=== PATIENT | male | born 1995 | race Caucasian/White ===

== ENCOUNTER 2017-04-17 01:22 | Emergency (ER) | payer MEDICAID ==
[~2017-04-17] VITALS: Ht 180.3 cm; Wt 100.0 kg
[2017-04-17 01:23] VITALS: BP 142/80; PULSE 84; RESP 16; TEMP 98.2; O2SAT 98
[2017-04-17] MEDS ORDERED: NAPROXEN 500 MG TAB PO ONE (02:30)
[2017-04-17] MEDS ORDERED: CYCLOBENZAPRINE HCL 10 MG TAB PO ONE (02:30)
[2017-04-17] MEDS ORDERED: CYCL10TA PO (02:31)
[2017-04-17] MEDS ORDERED: DICL75TA PO (02:31)
--- NOTE | 2017-04-17 02:35 | PD ---
HPI Chief Complaint: Back/ Neck Pain or Injury Time Seen by Provider: 02:28 Travel History International Travel<30 days: No Contact w/Intl Traveler<30days: No Traveled to known affect area: No History of Present Illness HPI 21-year-old white male presents to emergency department with complains of back pain after slip and fall earlier this evening. He states the pain is on his left lower back. Worse with bending and movement. He denies any acute bowel or bladder changes. No injury to his head, neck or upper back. Pain is moderate. Worse with bending and movement. Some relief from running still. PFSH Past Medical History Medical History: Denies Significant Hx Tetanus Vaccination: < 5 Years Influenza Vaccination: No Past Surgical History Surgical History: No Previous Surgery Social History Alcohol Use: Yes Tobacco Use: Yes Substance Use: No Allergies-Medications (Allergen,Severity, Reaction): Coded Allergies: No Known Allergies (Unverified , 04/17/17) Reported Meds & Prescriptions Reported Meds & Active Scripts Active Flexeril (Cyclobenzaprine HCl) 10 Mg Tab 10 Mg PO TID Diclofenac Sodium DR (Diclofenac Sodium) 75 Mg Tabdr 75 Mg PO BID Review of Systems Except as stated in HPI: all other systems reviewed are Neg Physical Exam Narrative GENERAL: Well-developed, well-nourished in no apparent distress. Nontoxic appearing. HEAD: Normocephalic, atraumatic. EYES: Pupils equal round and reactive. Extraocular motions intact. No scleral icterus. No injection or drainage. ENT: Nose clear. Throat without erythema, tonsillar hypertrophy or exudate. Uvula midline. Airway patent. NECK: Trachea midline. Supple, nontender, moves head freely. No central bony tenderness or spasm. CARDIOVASCULAR: Regular rate and rhythm without murmurs, gallops, or rubs. RESPIRATORY: Clear to auscultation. Breath sounds equal bilaterally. No wheezes , rales, or rhonchi. GASTROINTESTINAL: Abdomen soft, non-tender, nondistended. No hepato-splenomegaly , or palpable masses. No guarding. EXTREMITIES: No clubbing, cyanosis, or edema. No joint tenderness. BACK: No central bony tenderness to palpation of dorsal lumbar spine. Patient has tenderness and mild spasm to the left paralumbar spine. No saddle anesthesia. Without deformity. No flank tenderness. NEUROLOGICAL: Awake, alert and oriented x 3 .Cranial nerves grossly intact. Motor and sensory grossly within normal limits. Normal speech. Data Data Last Documented VS Vital Signs Date Time Temp Pulse Resp B/P (MAP) Pulse Ox O2 Delivery O2 Flow Rate FiO2 04/17/17 01:23 98.2 84 16 142/80 (100) 98 Room Air Orders Orders Naproxen (Naprosyn) (04/17/17 02:30) Cyclobenzaprine (Flexeril) (04/17/17 02:30) Ed Discharge Order (04/17/17 02:32) MDM Medical Decision Making Medical Screen Exam Complete: Yes Emergency Medical Condition: Yes Medical Record Reviewed: Yes Differential Diagnosis MDM: High Differential diagnoses: Fracture, sprain, strain, dislocation, contusion, neurovascular injury Narrative Course Patient's given Naprosyn 500 and Flexeril 10 mg by mouth. This is back contusion Diagnosis Primary Impression: Back contusion Qualified Codes: S20.222A - Contusion of left back wall of thorax, initial encounter Patient Instructions: General Instructions Additional Instructions: Rest. Ice for the next 3 days followed by heat . Flexeril and Voltaren. Follow-up with a primary care doctor in one week. Return to the ER for emergencies. Med/Other Pt SpecificInfo: Prescription(s) given Scripts Cyclobenzaprine (Flexeril) 10 Mg Tab 10 MG PO TID for Muscle Spasm, #21 TAB 0 Refills Prov: Dalila Youngblood DO 04/17/[address] (Diclofenac Sodium DR) 75 Mg Tabdr 75 MG PO BID, #14 TAB 0 Refills Prov: Dalila Youngblood DO 04/17/17 Disposition: 01 DISCHARGE HOME Condition: Stable Joseph Dia Apr 17, 2017 02:35
== END 2017-04-17 02:53 | disposition home or self-care (01) ==
LOC: NEPD 01:22
DX: S20.222A Contusion of left back wall of thorax, initial encounter (principal); W01.0XXA Fall on same level from slipping, tripping and stumbling without subsequent striking against object, initial encounter; Z72.0 Tobacco use
CPT/HCPCS: 99284